=== PATIENT | male | born 1995 | race Caucasian/White ===

== ENCOUNTER 2017-05-26 00:22 | Emergency (ER) | payer OTHER ==
[~2017-05-26] VITALS: Ht 177.8 cm; Wt 63.5 kg
[2017-05-26] MEDS ORDERED: NKM (00:28)
[2017-05-26 00:45] VITALS: BP 100/62
[2017-05-26] MEDS ORDERED: Ketorolac 30mg Inj IV ONE (00:45)
[2017-05-26] MEDS ORDERED: ZOFRAN4 MG ORAL (00:50)
--- NOTE | 2017-05-26 00:50 | Emergency Room Report ---
History of Present Illness General Chief Complaint: Abdominal Pain Source: Patient Present Illness HPI This is a 21-year-old male with no past medical history. He presents with 2 complaints. First one is that he has abdominal pain with vomiting. Onset last night. Vomiting is nonbloody nonbilious. No fever or chills. No diarrhea. Second complaint is that he felt lesion to the rectal area. He is sexually active and engaging in anal sex. No protection. Notice this lesion few days ago. Allergies: Coded Allergies: No Known Allergies (Unverified , 05/26/17) Patient History Past Medical History: see triage record, old chart reviewed Past Surgical History: none Pertinent Family History: none Social History: Reports: smoking Immunizations: other Reviewed Nursing Documentation: PMH: Agreed, PSxH: Agreed Nursing Documentation-PMH Past Medical History: No Stated History Review of Systems Eye: Denies: blurred vision, eye pain ENT: Denies: ear pain, nose congestion, throat swelling Respiratory: Denies: cough, shortness of breath Cardiovascular: Denies: chest pain, palpitations Gastrointestinal: Reports: abdominal pain, nausea, vomiting, Denies: diarrhea Musculoskeletal: Denies: back pain, joint pain Skin: Denies: rash Neurological: Denies: headache, numbness Endocrine: Denies: increased thirst, increased urine Hematologic/Lymphatic: Denies: easy bruising All Other Systems: negative except mentioned in HPI Physical Exam Vital Signs Date Time Temp Pulse Resp B/P Pulse Ox O2 Delivery O2 Flow Rate FiO2 05/26/17 00:24 98.2 86 18 141/86 97 Room Air vitals normal Sp02 EP Interpretation: reviewed, normal General Appearance: well appearing, no apparent distress, alert Head: normocephalic, atraumatic Eyes: bilateral eye EOMI, bilateral eye PERRL ENT: hearing grossly normal, normal pharynx Neck: full range of motion, supple, no meningismus Respiratory: chest non-tender, lungs clear, normal breath sounds Cardiovascular #1: regular rate, rhythm, no murmur Gastrointestinal: normal bowel sounds, non tender, no mass, no organomegaly, no bruit, non-distended Rectal: other - multiple anal warts Musculoskeletal: back normal, gait/station normal, normal range of motion Neurologic: alert, oriented x3 Psychiatric: mood/affect normal Skin: warm/dry Medical Decision Making Diagnostic Impression: Primary Impression: Abdominal pain of unknown etiology Additional Impressions: Nausea & vomiting Qualified Codes: R11.2 - Nausea with vomiting, unspecified Condyloma acuminata ER Course Patient presents with abdominal pain and vomiting. Most likely beginning of a gastroenteritis. No evidence of perforation. No evidence of acute abdomen or appendicitis. He does have anal warts. We'll discharge home. Lab Results Impression labs normal Last Vital Signs Date Time Temp Pulse Resp B/P Pulse Ox O2 Delivery O2 Flow Rate FiO2 05/26/17 00:24 98.2 86 18 141/86 97 Room Air Status: improved Disposition: HOME, SELF-CARE Condition: Stable Scripts Ondansetron (Zofran) 4 Mg Tablet 4 MG ORAL Q6H Y for Nausea & Vomiting, #10 TAB 0 Refills Prov: TEENA TEAGUE M.D. 05/26/17 Patient Instructions: Viral Gastroenteritis, Adult Additional Instructions: Follow up with your doctor in 7 days. Return if worse. TEENA TEAGUE M.D. May 26, 2017 00:50
[2017-05-26 01:07] LABS: BASOPHILS % (AUTO) 1.1 % (0.0-2.0); LYMPHOCYTES % (AUTO) 33.2 % (20.0-45.0); MEAN CORPUSCULAR HEMOGLOBIN 31.3 PG (27.0-31.0); MEAN CORPUSCULAR HGB CONC 33.5 G/DL (32.0-36.0); MEAN CORPUSCULAR VOLUME 94 FL (80-99); MEAN PLATELET VOLUME 5.3 FL (6.5-10.1); MONOCYTES % (AUTO) 11.5 % (1.0-10.0); NEUTROPHILS % (AUTO) 53.3 % (45.0-75.0); PLATELET COUNT 341 K/UL (150-450); RED CELL DISTRIBUTION WIDTH 12.2 % (11.6-14.8); WHITE BLOOD COUNT 7.8 K/UL (4.8-10.8)
[2017-05-26 01:25] LABS: ALANINE AMINOTRANSFERASE 13 U/L (3-41); ALBUMIN/GLOBULIN RATIO 1.8 (1.0-2.7); ANION GAP 13 (5-15); ASPARTATE AMINO TRANSFERASE 17 U/L (5-40); CALCIUM 9.9 mg/dL (8.6-10.2); CARBON DIOXIDE 27 mEQ/L (20-30); CHLORIDE 99 mEQ/L (98-107); GLOMERULAR FILTRATION RATE > 60 mL/min (>60); HEMOLYSIS 5; LIPASE 24 U/L (< 60); POTASSIUM 3.7 mEQ/L (3.4-4.9); SODIUM 139 mEQ/L (135-145); TOTAL PROTEIN 7.5 g/dL (6.6-8.7)
[2017-05-26 01:30] VITALS: BP 100/64
== END 2017-05-26 01:30 | disposition home or self-care (01) ==
LOC: EMR 00:53
DX: R10.9 Unspecified abdominal pain (principal); R11.2 Nausea with vomiting, unspecified; A63.0 Anogenital (venereal) warts; F17.200 Nicotine dependence, unspecified, uncomplicated
CPT/HCPCS: 36415; 80053; 83690; 85025; 96374; 96375; 99284; J1885; J2405

== ENCOUNTER 2017-07-05 01:02 | Inpatient (IN) | payer OTHER ==
[~2017-07-05] VITALS: Ht 177.8 cm; Wt 68.0 kg
[2017-07-05] VITALS (7 sets, daily range): BP systolic 109–125; BP diastolic 50–76
[~2017-07-05 01:02] MED LIST: NKM; ZOFRAN4 MG ORAL
--- NOTE | 2017-07-05 01:35 | Emergency Room Report ---
History of Present Illness General Chief Complaint: Headache Source: Patient Present Illness HPI Is a 21-year-old male with no past medical history. He presents with chief complaint of dizziness and lightheadedness. Onset today. He said when he turned his head a certain way he felt his heart beating really fast. Up to 180. This occurred 3 years ago but only last about 30 minutes. His been intermittently throughout the day. [place] lightheaded. Pass out. No nausea no vomiting. No chest pain. Allergies: Coded Allergies: No Known Allergies (Unverified , 05/26/17) Patient History Past Medical History: see triage record, old chart reviewed Past Surgical History: other Pertinent Family History: none Social History: Denies: smoking Immunizations: other Reviewed Nursing Documentation: PMH: Agreed, PSxH: Agreed Nursing Documentation-PMH Past Medical History: No Stated History Review of Systems Eye: Denies: eye pain, blurred vision ENT: Denies: ear pain, nose congestion, throat swelling Respiratory: Denies: cough, shortness of breath Cardiovascular: Reports: palpitations, Denies: chest pain Gastrointestinal: Denies: abdominal pain, diarrhea, nausea, vomiting Musculoskeletal: Denies: back pain, joint pain Skin: Denies: rash Neurological: Denies: headache, numbness Endocrine: Denies: increased thirst, increased urine Hematologic/Lymphatic: Denies: easy bruising All Other Systems: negative except mentioned in HPI Physical Exam Vital Signs Date Time Temp Pulse Resp B/P (MAP) Pulse Ox O2 Delivery O2 Flow Rate FiO2 07/05/17 01:08 98.6 117 18 148/82 99 Room Air vitals with tachycardia Sp02 EP Interpretation: reviewed, normal General Appearance: well appearing, no apparent distress, alert Head: normocephalic, atraumatic Eyes: bilateral eye PERRL, bilateral eye EOMI ENT: hearing grossly normal, normal pharynx Neck: full range of motion, supple, no meningismus Respiratory: chest non-tender, lungs clear, normal breath sounds Cardiovascular #1: regular rate, rhythm, no murmur, tachycardia Gastrointestinal: normal bowel sounds, non tender, no mass, no organomegaly, no bruit, non-distended Musculoskeletal: back normal, gait/station normal, normal range of motion Psychiatric: mood/affect normal Skin: warm/dry Medical Decision Making Diagnostic Impression: Primary Impression: Rapid palpitations ER Course Patient present with palpitation and is symptomatic from it. Right now heart rate is in the 80s. He said he was in the 150s to 180s at home. EKG showed short [place] interval and delta wave. This is consistent with WPW. Because of this , will admit him for monitoring and cardiology consult. I discussed the case with Dr. Hewitt who will admit. Lab Results Impression labs unremarkable EKG Diagnostic Results Rate: normal Rhythm: NSR ST Segments: other - short [place] interval, Delta wave Rhythm Strip Diag. Results Rhythm Strip Time: 02:00 EP Interpretation: yes Rate: 80 Rhythm: NSR, no PVC's, no ectopy Chest X-Ray Diagnostic Results Chest X-Ray Diagnostic Results : Chest X-Ray Ordered: Yes # of Views/Limited/Complete: 1 View Indication: Shortness of Breath EP Interpretation: Yes Interpretation: no consolidation, no effusion, no pneumothorax, no acute cardiopulmonary disease Impression: No acute disease Electronically Signed by: Electronically signed by Wilder Teague MD Last Vital Signs Date Time Temp Pulse Resp B/P (MAP) Pulse Ox O2 Delivery O2 Flow Rate FiO2 07/05/17 01:08 98.6 117 18 148/82 99 Room Air Status: improved Disposition: ADMITTED INPATIENT Condition: Serious WILDER TEAGUE M.D. Jul 05, 2017 01:34
[2017-07-05 01:51] LABS: BASOPHILS % (AUTO) 1.1 % (0.0-2.0); EOSINOPHILS % (AUTO) 1.1 % (0.0-3.0); LYMPHOCYTES % (AUTO) 33.6 % (20.0-45.0); MEAN CORPUSCULAR HEMOGLOBIN 31.2 PG (27.0-31.0); MEAN CORPUSCULAR HGB CONC 33.4 G/DL (32.0-36.0); MEAN CORPUSCULAR VOLUME 93 FL (80-99); MEAN PLATELET VOLUME 5.3 FL (6.5-10.1); MONOCYTES % (AUTO) 8.8 % (1.0-10.0); NEUTROPHILS % (AUTO) 55.4 % (45.0-75.0); PLATELET COUNT 399 K/UL (150-450); RED BLOOD COUNT 5.34 M/UL (4.70-6.10); RED CELL DISTRIBUTION WIDTH 11.3 % (11.6-14.8); WHITE BLOOD COUNT 8.4 K/UL (4.8-10.8)
[2017-07-05 02:05] LABS: ANION GAP 13 (5-15); CALCIUM 10.5 mg/dL (8.6-10.2); CARBON DIOXIDE 29 mEQ/L (20-30); CHLORIDE 100 mEQ/L (98-107); CREATININE 0.9 mg/dL (0.7-1.2); GLOMERULAR FILTRATION RATE > 60 mL/min (>60); HEMOLYSIS 1; POTASSIUM 4.3 mEQ/L (3.4-4.9); SODIUM 142 mEQ/L (135-145)
[2017-07-05 02:37] LABS: TROPONIN I < 0.30 ng/mL (<=0.30)
[2017-07-05] MEDS ORDERED: NKM (04:00)
[2017-07-05] MEDS: Aspirin Baby 81mg ORAL SCH (09:36)
--- NOTE | 2017-07-05 11:09 | Cardiology Report ---
APPROVED REPORT EXAM: Two-dimensional and M-mode echocardiogram with Doppler and color Doppler. INDICATION Arrhythmia M-Mode DIMENSIONS IVSd1.2 (0.7-1.1cm)Left Atrium (MM)2.8 (1.6-4.0cm) LVDd4.5 (3.5-5.6cm)Aortic Root2.9 (2.0-3.7cm) PWd1.1 (0.7-1.1cm)Aortic Cusp Exc.2.3 (1.5-2.0cm) LVDs2.9 (2.5-4.0cm) PWs1.5 cm Normal left ventricular chamber size, systolic function and wall motion. Left ventricular ejection fraction estimated to be 55-60 %. No evidence of left ventricular hypertrophy. All other cardiac chamber sizes are within normal limits. No evidence of pericardial effusion. Normal appearing aortic, mitral, puImonic and tricuspid valves. Mild mitral annulus and aortic root calcification. IVC at normal size with physiologic collapse. A color flow and spectral Doppler study was performed and revealed: No aortic regurgitation. No mitral regurgitation. Mitral inflow indicates normal left ventricular diastolic function. Mild tricuspid regurgitation. Tricuspid systolic velocities suggests peak right ventricular systolic pressure of 22 mmHg. No pulmonic regurgitation present.
--- NOTE | 2017-07-05 11:28 | Diagnostic Imaging Report ---
Indication: Chest pain Technique: One view of the chest Comparison: none Findings: Lungs and pleural spaces are clear. Heart size is normal. Impression: No acute process
--- NOTE | 2017-07-05 13:11 | Consultation ---
History of Present Illness General Date patient seen: Jul 05, 2017 Time patient seen: 12:00 Chief Complaint: Headache Referring physician: dr Hewitt Reason for Consultation: inpatietn management Present Illness HPI 21y/old male with no PMH, presented with dizziness and lightheadedness x 1 day He felt palpitations while turning his head certain way, up to 180 as counted . It happened about 3 years ago, but lasted only 30 minutes This time had symptoms intermittently thru the day, felt lightheaded, almost blackout, had to sit down symptoms occurred at rest denied chest pain, SOB no n/v/ strong family history of CAD/TX but not at young age father alive and well i ED mild tachy-112 ECG with short SD interval and presence of delta wave c/w WPW syndrome patient was admitted for further management Allergies: Coded Allergies: No Known Allergies (Unverified , 05/26/17) Medication History Scheduled No Known Medications* (NKM - No Known Medications*), 0 ., (Reported) No Known Medications* (NKM - No Known Medications*), 0 ., (Reported) Scheduled PRN Ondansetron (Zofran), 4 MG ORAL Q6H PRN for Nausea & Vomiting Patient History Healthcare decision maker Resuscitation status Chemical (Meds Only) Advanced Directive on File Review of Systems Constitutional: Reports: weakness Eye: Reports: no symptoms ENT: Reports: no symptoms Respiratory: Reports: no symptoms Cardiovascular: Reports: see HPI Gastrointestinal: Reports: no symptoms Genitourinary: Reports: no symptoms Musculoskeletal: Reports: no symptoms Skin: Reports: no symptoms Psychiatric: Reports: no symptoms Neurological: Reports: see HPI Endocrine: Reports: no symptoms Hematologic/Lymphatic: Reports: no symptoms Physical Exam General Appearance: WD/WN, no apparent distress, alert Lines, tubes and drains: peripheral HEENT: normocephalic, atraumatic, anicteric, mucous membranes moist, PERRL Neck: non-tender, normal alignment, supple Respiratory/Chest: lungs clear, normal breath sounds, no respiratory distress, no accessory muscle use Cardiovascular/Chest: normal peripheral pulses, normal rate - SR on tele with delta wave Abdomen: normal bowel sounds, non tender, soft Skin Exam: normal pigmentation, warm/dry Neurologic: no motor/sensory deficits, alert, oriented x 3, responsive, normal mood/affect Musculoskeletal: normal muscle bulk Last 24 Hour Vital Signs Date Time Temp Pulse Resp B/P (MAP) Pulse Ox O2 Delivery O2 Flow Rate FiO2 07/05/17 08:00 98.0 60 19 125/72 97 Room Air 07/05/17 08:00 52 07/05/17 04:20 97.5 62 18 122/68 98 Room Air 07/05/17 04:20 97.0 76 22 109/69 98 Room Air 07/05/17 03:54 97.0 76 22 109/69 98 Room Air 07/05/17 01:08 98.6 117 18 148/82 99 Room Air Laboratory Tests Test 07/05/17 01:25 White Blood Count 8.4 K/UL (4.8-10.8) Red Blood Count 5.34 M/UL (4.70-6.10) Hemoglobin 16.6 G/DL (14.2-18.0) Hematocrit 49.9 % (42.0-52.0) Mean Corpuscular Volume 93 FL (80-99) Mean Corpuscular Hemoglobin 31.2 PG (27.0-31.0) H Mean Corpuscular Hemoglobin Concent 33.4 G/DL (32.0-36.0) Red Cell Distribution Width 11.3 % (11.6-14.8) L Platelet Count 399 K/UL (150-450) Mean Platelet Volume 5.3 FL (6.5-10.1) L Neutrophils (%) (Auto) 55.4 % (45.0-75.0) Lymphocytes (%) (Auto) 33.6 % (20.0-45.0) Monocytes (%) (Auto) 8.8 % (1.0-10.0) Eosinophils (%) (Auto) 1.1 % (0.0-3.0) Basophils (%) (Auto) 1.1 % (0.0-2.0) Sodium Level 142 mEQ/L (135-145) Potassium Level 4.3 mEQ/L (3.4-4.9) Chloride Level 100 mEQ/L (98-107) Carbon Dioxide Level 29 mEQ/L (20-30) Anion Gap 13 (5-15) Blood Urea Nitrogen 11 mg/dL (7-23) Creatinine 0.9 mg/dL (0.7-1.2) Estimat Glomerular Filtration Rate > 60 mL/min (>60) Glucose Level 112 mg/dL (74-106) H Calcium Level 10.5 mg/dL (8.6-10.2) H Troponin I < 0.30 ng/mL (<=0.30) Height (Feet): 5 Height (Inches): 10.00 Weight (Pounds): 150 Medications Current Medications Medications (Trade) Dose Ordered Sig/Arnaldo Route PRN Reason Start Time Stop Time Status Last Admin Dose Admin Acetaminophen (Tylenol) 650 mg Q6H PRN ORAL Mild Pain/Temp > 100.5 07/05/17 07:00 08/04/17 06:59 Aspirin (ASA) 81 mg DAILY ORAL 07/05/17 09:00 08/04/17 08:59 07/05/17 09:36 Assessment/Plan Assessment/Plan ASSESSMENT WPW syndrome palpitations presyncope smoker PLAN OF CARE keep on tele cardio eval ECHO stable with pEF started n ASA check TSH, liver panel likely will need ablation - claims attorney consult pending respiratory status stable college counselor on smoking cessation, not ready to quit , declined Nicotine patch O2 prn to keep sat above 92%, pulse ox stable on RA case discussed and evaluated by supervising physician Sha Tomas)Patti NP Jul 05, 2017 13:11
--- NOTE | 2017-07-05 13:55 | History & Physical ---
History and Physical History & Physicial Chester Hewitt MD Jul 05, 2017 13:55
--- NOTE | 2017-07-05 14:07 | Cardiac Electrophysiology PN ---
Subjective Subjective [id number] Objective Last 24 Hour Vital Signs Date Time Temp Pulse Resp B/P (MAP) Pulse Ox O2 Delivery O2 Flow Rate FiO2 07/05/17 12:00 97.7 61 19 121/50 98 Room Air 07/05/17 08:00 98.0 60 19 125/72 97 Room Air 07/05/17 08:00 52 07/05/17 04:20 97.5 62 18 122/68 98 Room Air 07/05/17 04:20 97.0 76 22 109/69 98 Room Air 07/05/17 03:54 97.0 76 22 109/69 98 Room Air 07/05/17 01:08 98.6 117 18 148/82 99 Room Air Laboratory Tests Test 07/05/17 01:25 White Blood Count 8.4 K/UL (4.8-10.8) Red Blood Count 5.34 M/UL (4.70-6.10) Hemoglobin 16.6 G/DL (14.2-18.0) Hematocrit 49.9 % (42.0-52.0) Mean Corpuscular Volume 93 FL (80-99) Mean Corpuscular Hemoglobin 31.2 PG (27.0-31.0) H Mean Corpuscular Hemoglobin Concent 33.4 G/DL (32.0-36.0) Red Cell Distribution Width 11.3 % (11.6-14.8) L Platelet Count 399 K/UL (150-450) Mean Platelet Volume 5.3 FL (6.5-10.1) L Neutrophils (%) (Auto) 55.4 % (45.0-75.0) Lymphocytes (%) (Auto) 33.6 % (20.0-45.0) Monocytes (%) (Auto) 8.8 % (1.0-10.0) Eosinophils (%) (Auto) 1.1 % (0.0-3.0) Basophils (%) (Auto) 1.1 % (0.0-2.0) Sodium Level 142 mEQ/L (135-145) Potassium Level 4.3 mEQ/L (3.4-4.9) Chloride Level 100 mEQ/L (98-107) Carbon Dioxide Level 29 mEQ/L (20-30) Anion Gap 13 (5-15) Blood Urea Nitrogen 11 mg/dL (7-23) Creatinine 0.9 mg/dL (0.7-1.2) Estimat Glomerular Filtration Rate > 60 mL/min (>60) Glucose Level 112 mg/dL (74-106) H Calcium Level 10.5 mg/dL (8.6-10.2) H Troponin I < 0.30 ng/mL (<=0.30) BRADEN BUSTAMANTE Jul 05, 2017 14:07
--- NOTE | 2017-07-05 22:45 | History and Physical Report ---
DATE OF ADMISSION: 07/05/2017 CHIEF COMPLAINT: Palpitation. History Of Present Illness: This is a 21-year-old gentleman from [place], who presented to the hospital complaining about palpitations associated with dizziness. The patient stated that his palpitation lasted for one to two hours and after that got slowly slowly improved. He had the same episode shorter time about three years ago while he was in [place] and that lasted about 30 minutes and subsequently was improved by itself. He presented to the emergency room and was noted heart rate up to 180s and shortly after initial evaluation and EKG, the patient was confirmed to have the WPW and subsequently, the patient was admitted to the hospital for further evaluation and therapy. Past Medical History And Past Surgical History: As above. Denies any past medical or past surgical history. Medications: At home, none. Denies any herbal medications. Denies any aecn-brl-sdmksts medication. ALLERGIES: No known drug allergies. Social History: The patient denies any alcohol or drugs. He is a student. He smokes 5 to 10 cigarettes a day. FAMILY HISTORY: Coronary artery disease runs in the paternal side. Review Of Systems: Mostly as above. Denies any dysuria, frequency, hematuria, or hematochezia. Denies any hemoptysis or hematochezia. Denies any suicidal or homicidal ideation. Denies any loss of consciousness, however, complained about dizziness and palpitation. Denies any double vision. Denies any bowel or urine incontinence. PHYSICAL EXAMINATION: Vital signs: On admission, temperature 98 degrees, pulse of 60, respirations 19, and blood pressure 125/72. GENERAL: The patient is awake and responsive, in no acute distress. Head and Neck: Pupils reactive to light. Extraocular movements intact. Neck was supple. No JVD. LUNGS: Good air entry. No wheezing or rales. HEART: S1 and S2. Regular rhythm. No gallops. ABDOMEN: Soft, nondistended, and nontender. Positive bowel sounds. EXTREMITIES: No cyanosis, clubbing, or edema. Neurologic: Cranial nerves II through XII are grossly intact. Motor is 5/5 in all extremities. RECTAL: Refused and deferred. GENITOURINARY: Refused and deferred. PSYCHIATRIC: Mood and affect is intact. Laboratory And Diagnostic Data: WBC of 8.4, hemoglobin 16, hematocrit 49, and platelets 390,000. Sodium 142, potassium 4.2, chloride 100, bicarbonate 29, BUN 11, creatinine 0.9, glucose is 112, and calcium is 10.5. Troponin is less than 0.30. The patient had a chest x-ray, was unremarkable, no acute findings. Echocardiogram was done today showed ejection of 55% to 60%, normal appearing aorta, mitral, pulmonic, and tricuspid valves, no mitral regurgitation, mitral inflow index, normal left ventricular systolic function. The patient's EKG confirmed that the patient has WPW and showed sinus bradycardia with a short OR with ventricular rate of 57 and right axis deviation. ASSESSMENT: 1. Palpitation and dizziness, most likely secondary to Myhec-Rxztkylfn-Bszjq. 2. Chronic smoker. Plan: Admit the patient to telemetry. We discussed case with Dr. Gregory Almaraz from Cardiology. Cardiology Electrophysiology was considered to observe overnight. Monitor the patient's laboratory and vital signs and cardiac rhythm. At this time, the patient's code status is Full Code. DVT prophylaxis. Heparin subcutaneously. Chester Hewitt M.D. DR: Brandan JOB#: [id number] CC:
[2017-07-06 04:00] VITALS: BP 120/53
[2017-07-06 06:57] LABS: BASOPHILS % (AUTO) 1.2 % (0.0-2.0); EOSINOPHILS % (AUTO) 1.5 % (0.0-3.0); LYMPHOCYTES % (AUTO) 34.9 % (20.0-45.0); MEAN CORPUSCULAR HGB CONC 35.1 G/DL (32.0-36.0); MEAN CORPUSCULAR VOLUME 94 FL (80-99); MEAN PLATELET VOLUME 5.7 FL (6.5-10.1); MONOCYTES % (AUTO) 10.5 % (1.0-10.0); NEUTROPHILS % (AUTO) 51.9 % (45.0-75.0); PLATELET COUNT 294 K/UL (150-450); RED BLOOD COUNT 4.52 M/UL (4.70-6.10); RED CELL DISTRIBUTION WIDTH 11.7 % (11.6-14.8); WHITE BLOOD COUNT 8.2 K/UL (4.8-10.8)
[2017-07-06 06:58] LABS: TROPONIN I < 0.30 ng/mL (<=0.30)
[2017-07-06 07:27] LABS: THYROID STIMULATING HORMONE 0.478 uIU/mL (0.300-4.500)
[2017-07-06 07:40] LABS: ALANINE AMINOTRANSFERASE 16 U/L (3-41); ASPARTATE AMINO TRANSFERASE 16 U/L (5-40); CALCIUM 9.9 mg/dL (8.6-10.2); CHLORIDE 100 mEQ/L (98-107); CREATININE 0.8 mg/dL (0.7-1.2); GLOMERULAR FILTRATION RATE > 60 mL/min (>60); HEMOLYSIS 6; MAGNESIUM 2.1 mg/dL (1.7-2.5); PHOSPHORUS 4.4 mg/dL (2.5-4.8); POTASSIUM 4.9 mEQ/L (3.4-4.9); SODIUM 141 mEQ/L (135-145)
[2017-07-06 07:58] LABS: ANION GAP 13 (5-15); CARBON DIOXIDE 28 mEQ/L (20-30)
[2017-07-06 08:19] VITALS: BP 108/63
--- NOTE | 2017-07-06 08:44 | Pulmonology Progress Note ---
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, not ready to quit, declined Nicotine patch O2 prn to keep sat above 92%,pulse oz stable on RA dc plan likely today case discussed and evaluated by supervising physician Subjective Allergies: Coded Allergies: No Known Allergies (Unverified , 05/26/17) Subjective denies palpitations, dizziness, chest pain Objective Last 24 Hour Vital Signs Date Time Temp Pulse Resp B/P (MAP) Pulse Ox O2 Delivery O2 Flow Rate FiO2 07/06/17 08:19 97.2 70 18 108/63 98 Room Air 07/06/17 04:00 84 07/06/17 04:00 97.7 60 20 120/53 99 Room Air 07/06/17 00:00 55 07/05/17 23:54 97.7 62 20 120/53 99 Room Air 07/05/17 20:23 97.7 64 20 120/73 97 Room Air 07/05/17 20:00 70 07/05/17 16:00 98.6 65 19 120/76 97 Room Air 07/05/17 16:00 56 07/05/17 12:00 56 07/05/17 12:00 97.7 61 19 121/50 98 Room Air General Appearance: WD/WN, no acute distress HEENT: normocephalic, atraumatic, anicteric, mucous membranes moist, PERRL Respiratory/Chest: chest wall non-tender, lungs clear, normal breath sounds, no respiratory distress, no accessory muscle use Cardiovascular: normal peripheral pulses, normal rate, regular rhythm - SR with delta waves Abdomen: normal bowel sounds, soft, non tender, non distended Genitourinary: normal external genitalia Extremities: no edema, pedal pulses normal Neurologic/Psychiatric: no motor/sensory deficits, alert, oriented x 3, responsive, normal mood/affect Lymphatic: no neck adenopathy Musculoskeletal: normal muscle bulk Laboratory Tests 07/06/17 05:30: White Blood Count 8.2, Red Blood Count 4.52L, Hemoglobin 15.0, Hematocrit 42.6, Mean Corpuscular Volume 94, Mean Corpuscular Hemoglobin 33.0H, Mean Corpuscular Hemoglobin Concent 35.1, Red Cell Distribution Width 11.7, Platelet Count 294, Mean Platelet Volume 5.7L, Neutrophils (%) (Auto) 51.9, Lymphocytes (%) (Auto) 34.9, Monocytes (%) (Auto) 10.5H, Eosinophils (%) (Auto) 1.5, Basophils (%) ( Auto) 1.2, Sodium Level 141, Potassium Level 4.9, Chloride Level 100, Carbon Dioxide Level 28, Anion Gap 13, Blood Urea Nitrogen 10, Creatinine 0.8, Estimat Glomerular Filtration Rate > 60, Glucose Level 91, Calcium Level 9.9, Phosphorus Level 4.4, Magnesium Level 2.1, Total Bilirubin 0.5, Aspartate Amino Transf (AST/SGOT) 16, Alanine Aminotransferase (ALT/SGPT) 16, Alkaline Phosphatase 71, Troponin I < 0.30, Total Protein 7.0, Albumin 4.7, Globulin 2.3 , Albumin/Globulin Ratio 2.0, Thyroid Stimulating Hormone (TSH) 0.478 Current Medications Medications (Trade) Dose Ordered Sig/Arnaldo Route PRN Reason Start Time Stop Time Status Last Admin Dose Admin Acetaminophen (Tylenol) 650 mg Q6H PRN ORAL Mild Pain/Temp > 100.5 07/05/17 07:00 08/04/17 06:59 Aspirin (ASA) 81 mg DAILY ORAL 07/05/17 09:00 08/04/17 08:59 07/05/17 09:36 Sha MedeirosPatti pickering NP Jul 06, 2017 08:44
[2017-07-06] MEDS: Aspirin Baby 81mg ORAL SCH (09:10)
--- NOTE | 2017-07-06 11:58 | Discharge Summary ---
Discharge Summary Hospital Course Date of Admission Jul 05, 2017 at 02:37 Date of Discharge Jul 06, 2017 at 09:10 Admitting Diagnosis Arrythmia, Imbmn-Jgisxoxmk-Hsada syndrome HPI Александр Mukherjee is a 21 year old male who was admitted on Jul 05, 2017 at 02: 37 for Arrythmia,Cardenas Parkinsons' White Syndrome Hospital Course Last 24 Hour Vital Signs Date Time Temp Pulse Resp B/P (MAP) Pulse Ox O2 Delivery O2 Flow Rate FiO2 07/06/17 08:19 97.2 70 18 108/63 98 Room Air 07/06/17 04:00 84 07/06/17 04:00 97.7 60 20 120/53 99 Room Air 07/06/17 00:00 55 07/05/17 23:54 97.7 62 20 120/53 99 Room Air 07/05/17 20:23 97.7 64 20 120/73 97 Room Air 07/05/17 20:00 70 07/05/17 16:00 98.6 65 19 120/76 97 Room Air 07/05/17 16:00 56 07/05/17 12:00 56 07/05/17 12:00 97.7 61 19 121/50 98 Room Air feeling good, no palpitation , anxious to go home. discharge [facility] dictated: [id number] Discharge Discharge Disposition Patient was discharged to Home () Discharge Diagnoses: Chester Hewitt MD Jul 06, 2017 11:58
--- NOTE | 2017-07-06 18:30 | Discharge Summary ---
DATE OF ADMISSION: 07/05/2017 DATE OF DISCHARGE: 07/06/2017 Brief History: This is a 21-year-old gentleman from [place], who presented to the hospital complaining about palpitations and dizziness. He denies any past medical history, who shortly after initial evaluation, the patient was noted to have palpitations due to the WPW. Short Hospital Course: The patient was consulted with Dr. Almaraz, from Cardiology electrophysiology, and Dr. Urbina from Pulmonary Critical Care. The patient's status gradually improved and subsequently was discharged home today after the morning labs reviewed and the patient was advised to follow up in my office within one week. FINAL DIAGNOSES: 1. Palpitations, most likely secondary to Qyyua-Eafxxijvp-Beisn. 2. Chronic smoker. Plan: The patient advised to follow up in my office within one week in order to refer to [facility] for EP study, possible ablation by Dr. Almaraz. MEDICATION ON DISCHARGE: Continue discharge medication list. ACTIVITY: As tolerated. DIET: Regular diet. FOLLOWUP: Advised to follow up in my office within one week. Chester Hewitt M.D. DR: BRETT JOB#: [id number] CC:
--- NOTE | 2017-07-07 14:45 | Cardiology Report ---
APPROVED REPORT EKG Measurement Heart [id number] Sinus rhythm with sinus arrhythmia with short DC Moderate voltage criteria for LVH, may be normal variant Inferior-posterior infarct, age undetermined Abnormal ECG
--- NOTE | 2017-07-08 09:45 | Consultation ---
DATE OF CONSULTATION: 07/05/2017 CARDIOLOGY CONSULTATION Reason For Consultation: Recurrent palpitations and supraventricular tachycardia, WPW. History Of Present Illness: The patient is a 21-year-old gentleman from [place] with history of palpitation about 3 years ago that lasted about 30 minutes. The patient did not seek medical attention. The patient presented to the emergency room with episodes of dizziness and lightheadedness, and he felt that he was racing up to 180 beats per minute. He felt that intermittent during the day. The patient came to [facility] and EKG showed manifest pre-excitation with WPW pattern. 01:07 spontaneously. The patient was then admitted and a cardiac electrophysiology consultation was obtained for further evaluation and management. Review Of Systems: Negative other than what was mentioned in history of present illness. PAST MEDICAL HISTORY: History of palpitations. Social History: He is from [place]. Does not smoke or drink alcohol. He lives at home. FAMILY HISTORY: Noncontributory. PHYSICAL EXAMINATION: Vital Signs: Blood pressure is 110/50, pulse is 60, respirations 19, and he is afebrile. HEAD AND NECK: Showed no JVD or carotid bruits. LUNGS: Clear. CARDIOVASCULAR: Regular S1 and S2 with no gallop or murmur. ABDOMEN: Soft. EXTREMITIES: No pitting edema. Laboratory And Diagnostic Data: His labs show white count of 8.4, hemoglobin 16.7, hematocrit of 50, and platelets of 400,000. Sodium 142, potassium 4.2, BUN 11, and creatinine 0.9. Troponin is negative. His 12-lead EKG from 07/05/2017 at 1155 hours showed sinus rhythm with manifest pre-excitation with delta waves in the inferior leads as well as delta wave in lead V2 through V6. The EKG on 07/05/2017 at 01:33 p.m., however, shows sinus rhythm with smaller amount of pre-excitation, but certainly no pre-excitation of inferior leads, but still present in precordial leads. Assessment And Plan: Recurrent palpitation with tachycardia, heart rate in 180s and manifested pre-excitation suggestive of [id number] on a 12-lead electrocardiogram. We will watch the patient on telemetry, avoid beta-phylicia or calcium channel blockers. 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 This can be arranged as an outpatient. Thank you very much, Dr. Hewitt, for allowing me to participate in the care of this patient. Please do not hesitate to contact me for any questions regarding my evaluation. Gregory lAmaraz M.D. DR: Nikia JOB#: [id number] CC:
== END 2017-07-06 09:10 | disposition home or self-care (01) | DRG 310 ==
LOC: EMR 01:24 → 2E 02:37 → EDBEDREQ 02:39 → 2E 04:28
DX: I45.6 Pre-excitation syndrome (principal); I47.1 Supraventricular tachycardia; R55 Syncope and collapse; R00.2 Palpitations; F17.200 Nicotine dependence, unspecified, uncomplicated
CPT/HCPCS: 36415; 71010; 80048; 80053; 83735; 84100; 84443; 84484; 85025; 93005; 93306; 99284